=== PATIENT | female | born 1975 | race Caucasian/White ===

== ENCOUNTER 2019-10-01 07:09 | Day surgery (SDC) | payer OTHER ==
[2019-09-26 15:50] VITALS: BMI 25.6
[2019-10-01] MEDS ORDERED: PROPOFOL 20 ML ONE ×2 (07:40)
[2019-10-01] MEDS ORDERED: LIDOCAINE HCL/PF 2% SDV 5ML VIAL ONE (07:40)
[2019-10-01 08:40] VITALS: TEMP 98
[2019-10-01 11:16] VITALS: BP 95/65; PULSE 72
--- NOTE | 2019-10-03 15:26 | PATH ---
Surgical Pathology Report Patient Name: [facility]. Rec. #: [id number] /Age/Gender: 1975 (Age: 43) / F Account: [id number] Location: [facility] Taken: 10/01/2019 Received: 10/01/2019 Reported: 10/03/2019 Physicians: NATACHA MANJARREZ Specimen(s) Received STOMACH Clinical History Abdominal pain Postoperative diagnosis: phytobezoar Final Diagnosis STOMACH, BIOPSY: MILD CHRONIC GASTRITIS WITH FEATURES OF REACTIVE GASTROPATHY. IMMUNOSTAIN IS NEGATIVE FOR H.PYLORI ORGANISMS. Electronically Signed Mariel Marks M.D. Gross Description Received in formalin, labeled "biopsy stomach" are 3 pepe, irregular portions of soft tissue averaging 0.3 cm. in greatest dimension. The specimens are submitted in toto in one cassette. /10/01/2019 [facility]/10/01/2019
== END 2019-10-01 09:20 | disposition home or self-care (01) ==
LOC: FASU 07:09
PROVIDERS: ATTEND Internal Medicine Gastroenterology
PROC: 0DB78ZX Excision of Stomach, Pylorus, Via Natural or Artificial Opening Endoscopic, Diagnostic (ICD-10-PCS; 2019-10-01)
PROC: 0DB68ZX Excision of Stomach, Via Natural or Artificial Opening Endoscopic, Diagnostic (ICD-10-PCS; principal; 2019-10-01 08:14)
DX: K29.50 Unspecified chronic gastritis without bleeding (principal); K31.9 Disease of stomach and duodenum, unspecified
CPT/HCPCS: 84703